=== PATIENT | male | born 1950 | race Caucasian/White ===

== ENCOUNTER 2018-04-21 13:33 | Inpatient (IN) | payer OTHER ==
[~2018-04-21] VITALS: Ht 188 cm; Wt 114.8 kg
[2018-05-23] VITALS (9 sets, daily range): BP systolic 110–143; BP diastolic 55–97; PULSE 66–105; TEMP 97.8–99.4
[2018-05-23] MEDS ORDERED: ZESTRIL40 MG PO (07:52)
[2018-05-23] MEDS ORDERED: HCTZ 25MG TAB25 MG PO (07:52)
[2018-05-23] MEDS ORDERED: NORVASC 5MG5 MG/TAB PO (07:53)
[2018-05-23] MEDS ORDERED: PRAVACHOL 40MG40 MG PO (07:53)
--- NOTE | 2018-05-23 13:35 | NUR ---
PATIENT BACK IN ROOM 329 POST OP. ORIENTED BUT DROWSY. VSS. DENIES PAIN. RTK DRESSING IS CD&I WITH AQUACEL AND TECHNOL BRACE INPLACE. TEDS & SCD'S TO BLE. DEVRIES TO DEPENDENT DRAINAGE WITH SMALL AMOUNTS OF CLEAR YELLOW URINE NOTED. IV FLUIDS INFUSING VIA PUMP. NO C/O N/V. LIQUIDS AT BEDSIDE. HEAD TO TOE ASSESSMENT WNL. NO OTHER NEEDS. CALL LIGHT IN REACH.
--- NOTE | 2018-05-23 14:55 | NUR ---
ELDA and SW student met with patient and his to discuss discharge planning. Patient lives in [place] with his Denise. Patients PCP is the [facility] Kear[facility] in [place] and he obtains his medications form [facility] pharmacy. Patient has his walker and will be doing outpatient PT at [facility]. SW made copies of patients DPOA-HC and Living will and placed them in the chart. There are no anticipated discharge needs at this time.
--- NOTE | 2018-05-23 20:15 | NUR ---
Assessment completed. Patient is A&O x 4. VSS. Pain controlled at this time with scheduled Tylenol and prn Oxycodone. Aquacell dressing to right knee is CDI. Technol brace maintained to RLE. Pedal pulses intact. BLE alexis hose/scds on. Encouraged ankle pumps. Tolerating diet with no c/o nausea. Grove catheter to DD with yellow clear urine draining. IVF infusing with intermittent antibiotic per orders. Will ambulate this evening after pain medication patient has just received takes into effect. Denies any concerns or needs at this time. Bed is in a low position with call light in reach.
--- NOTE | 2018-05-23 22:00 | NUR ---
Patient up with assist x 1 with walker and gait belt. Ambulated approximately 75 feet in the hallway this evening with staff. Assisted with repositioning in bed. Denies any other concerns or needs at this time.
--- NOTE | 2018-05-23 22:40 | NUR ---
Patient called out c/o right knee pain that was throbbing after ambulating in the hallway and had not gotten better with elevation or ice, prn IV Morphine given.
--- NOTE | 2018-05-24 00:30 | NUR ---
Patient has been resting well since receiving a dose of prn IV Morphine. Oxycodone given at this time and assisted with repositioning in bed. Denies any concerns or needs, call light remains within reach.
[2018-05-24 00:57] VITALS: BP 116/71; PULSE 107; TEMP 98.7
[2018-05-24 04:55] VITALS: BP 140/67; PULSE 104; TEMP 99.4
--- NOTE | 2018-05-24 06:10 | NUR ---
Patient has rested intermittently through the night. Pain has been controlled with scheduled Tylenol and prn Oxycodone. Patient did receive 1 dose of prn IV Morphine last night after ambulating. Technol brace removed this morning. Aquacell dressing to right knee has a small amount of drainage noted, an ice pack applied to knee at this time. Grove catheter remains to DD with yellow clear urine draining. IVF infusing with last antibiotic due this morning then will be INT. Denies any concerns or needs at this time, call light is within reach.
[2018-05-24 06:20] LABS: HEMOGLOBIN 12.4 g/dl (13.5-18.0)
[2018-05-24 06:25] LABS: HEMATOCRIT 36.6 % (42.0-52.0)
--- NOTE | 2018-05-24 07:06 | NUR ---
REPORT FROM BRANDON JERRY. BLACK BETANCOURT IN TO SEE PATIENT SEE COMPUTER FOR NEW ORDERS.
[2018-05-24 07:52] VITALS: BP 132/79; PULSE 106; TEMP 98
--- NOTE | 2018-05-24 08:41 | NUR ---
PT UP IN BED FOR BREAKFAST. OUT TO [facility] WITH THERAPY. AMBULATING WELL DRESSING TO RIGHT KNEE CDI WITH AQUACEL OVER INCISION.
[2018-05-24 11:40] VITALS: BP 132/72; PULSE 101; TEMP 99
--- NOTE | 2018-05-24 13:10 | NUR ---
Initial visit; Patient and his thanked Trimmer Operator for looking in on patient and wishing him well and offering God's blessings.
--- NOTE | 2018-05-24 14:47 | NUR ---
SW and Sammy student met with patient and about DME choice for a walker. Patient and chose [facility] and signed choice form. SW will fax order to [facility] once it is signed.
[2018-05-24 15:48] VITALS: BP 135/69; PULSE 99; TEMP 98.4
--- NOTE | 2018-05-24 19:10 | NUR ---
Assessment completed. Patient is A&O x 4. VSS, on room air. Pain controlled with prn Oxycodone, patient wishes to stick to Oxycodone instead of alternating between Oxycodone and [place]. Aquacell dressing to right knee has a moderate amount of drainage noted, ice pack in place at this time. Pedal pulses intact. BLE alexis hose/scds on. Encouraged ankle pumps. Patient states he's been working on RLE exercises while in bed. Tolerating diet with no c/o nausea. Voiding with no difficulities. INT to left hand. Will ambulate later this evening in the hallway. Denies any concerns or needs, call light within reach.
[2018-05-24 20:08] VITALS: BP 105/55; PULSE 105; TEMP 98.6
[2018-05-25 00:15] VITALS: BP 116/58; PULSE 103; TEMP 98.6
[2018-05-25 04:50] VITALS: BP 119/71; PULSE 95; TEMP 98.3
--- NOTE | 2018-05-25 05:46 | NUR ---
Patient has rested intermittently through the night. VSS. Pain remains controlled with prn Oxycodone. Technol brace removed at this time. Aquacell dressing to right knee with a moderate amount of drainage, no increase in drainage since shift assessment. Denies any concerns or needs, call light is within reach.
[2018-05-25 06:24] LABS: HEMOGLOBIN 11.5 g/dl (13.5-18.0)
[2018-05-25 06:27] LABS: HEMATOCRIT 33.5 % (42.0-52.0)
[2018-05-25 08:00] VITALS: BP 116/71; PULSE 113; TEMP 99
--- NOTE | 2018-05-25 08:00 | NUR ---
PATIENT IS A&O. VSS. RATES PAIN AT 5-6 IN RLE. GAVE PRN ROXICODONE. RTK DRESSING NOTED MOD BLOODY DRAINAGE TO AQUACEL. PATIENT PLANNING TO SHOWER WITH OT THIS AM AND DRESSING WILL BE CHANGED. TEDS TO BLE. SCD'S CURRENTLY OFF. PATIENT UP IN BEDSIDE CHAIR. BREAKFAST TRAY AT BEDSIDE. AM MEDS GIVEN. HEAD TO TOE WNL. NO OTHER NEEDS. CALL LIGHT IN REACH.
[2018-05-25 10:25] VITALS: BP 116/71; PULSE 113; TEMP 99
[2018-05-25 12:42] VITALS: BP 101/63; PULSE 106; TEMP 98.8
[2018-05-25] MEDS ORDERED: NORCO 325 MG-7.1 TAB PO (13:41)
[2018-05-25] MEDS ORDERED: ROXICODONE 55 MG/TAB PO (13:41)
[2018-05-25] MEDS ORDERED: ASPI325T6 PO (13:41)
[2018-05-25] MEDS ORDERED: COLACE 100100 MG/CAP PO (13:42)
[2018-05-25] MEDS ORDERED: TYLENOL 500MG500 MG PO (13:42)
--- NOTE | 2018-05-25 13:43 | NUR ---
ELDA sent referral for walker to [facility]. Ingrid called to confirm that they only have [facility] as a payer source and not medicare as well. ELDA met with patient and who provided their medicare card. ELDA faxed to [facility] who will bring the walker prior to dc. ELDA called Mert in Finance to inform them of medicare card. Patient is discharging home today with spouse support.
--- NOTE | 2018-05-25 14:35 | NUR ---
PATIENT DISCHARGING HOME VIA WHEELCHAIR TO PERSONAL VEHICLE WITH . GAVE DISCHARGE INSTRUCTIONS, PRESCRIPTIONS, AIRSTRIPS & FOLLOW UP APTS. ANSWERED ALL QUESTIONS/CONCERNS. SENT HOME PERSONAL BELONGINGS. IV DC'D THIS AM. PATIENT DISCHARGED.
== END 2018-05-25 14:35 | disposition home or self-care (01) | DRG 470 ==
LOC: JCC 05-23 06:47
PROVIDERS: ADMIT Orthopaedic Surgery
PROC: 0SRC0J9 Replacement of Right Knee Joint with Synthetic Substitute, Cemented, Open Approach (ICD-10-PCS; principal; 2018-05-23 11:00)
DX: M17.11 Unilateral primary osteoarthritis, right knee (principal); I10 Essential (primary) hypertension; Z87.891 Personal history of nicotine dependence
CPT/HCPCS: A4314; A9284; C1713; C1776; J0690; J2250; J2270; J2704; J3010; J7030

== ENCOUNTER → 2018-05-10 | Outpatient (CLI) | payer OTHER | LOC: COL.LAB 15:21 | DX: Z01.812 Encounter for preprocedural laboratory examination (principal) ==

== ENCOUNTER 2019-01-19 11:34 | Inpatient (IN) | payer OTHER ==
[~2019-01-19] VITALS: Ht 188 cm; Wt 125.3 kg
[~2019-01-19 11:34] MED LIST: ASPI325T6 PO; COLACE 100100 MG/CAP PO; HCTZ 25MG TAB25 MG PO; NORCO 325 MG-7.1 TAB PO; NORVASC 5MG5 MG/TAB PO; PRAVACHOL 40MG40 MG PO; ROXICODONE 55 MG/TAB PO; TYLENOL 500MG500 MG PO; ZESTRIL40 MG PO
[2019-03-21] VITALS (12 sets, daily range): BP systolic 110–124; BP diastolic 51–80; PULSE 59–115; TEMP 97.5–985
[2019-03-21] MEDS ORDERED: ASPIRIN 81M81 MG/TA2 PO (03:30)
[2019-03-21] MEDS ORDERED: ALEVE LIQCAPS (03:32)
[2019-03-21] MEDS ORDERED: GLUCOSAMINE 1000 PO (05:31)
--- NOTE | 2019-03-21 10:40 | NUR ---
PT TO ROOM 329 PER BED WITH REPORT FROM TERRIE JERRY PACU @1030. PT IS A/O X3, LUNGS CLEAR, BOWEL SOUNDS PRESENT. DRESSING TO RIGHT KNEE CDI WITH OCCLUSIVE OFELIA OVER SITE. SCDS BILATERALLY AND DAVID ON NON OPERATIVE LOWER EXT. IV TO PUNP, DEVRIES TO DD WITH CLEAR YELLOW URINE IN BAG. PT'S AT BEDSIDE. ICE CHIPS PROVIDED PER REQUEST. ICE BAG TO RIGHT KNEE.
--- NOTE | 2019-03-21 17:06 | NUR ---
Belt Back Operator met with patient and patient's Denise (ph#[phone]) to discuss discharge planning. Patient lives in [place] and sees Dr. Kearney at the [facility] for primary care. [facility] Patient has a cpap and walker. Patient states he has Advance Directives completed. Patient plans to return home upon discharge.
--- NOTE | 2019-03-21 20:00 | NUR ---
Report received. 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 C/O pain to left Knee rating 7/10 described as throbbing. Roxicodone given per dr romero. States he cant get up to ambulate at this time due to pain level. Will reattempt later this shift.
--- NOTE | 2019-03-21 23:30 | NUR ---
Assessment complete. Denies N/pain/shortness of breath. Tolerating PO. Dressing to left knee-bulky white with cali bandage C/D/I. Fresh ice packs applied. SCDs/TEDs bilat. Discussed ambulation again but refusing due to the time. Discussed getting up before end of shift. Verbalizes understanding. Denies needs. Call light in reach/bed in low/wheels locked. Will monitor.
[2019-03-22 00:19] VITALS: BP 119/71; PULSE 104; TEMP 98.3
[2019-03-22 04:15] VITALS: BP 122/85; PULSE 101; TEMP 98.1
[2019-03-22 06:44] LABS: HEMATOCRIT 38.1 % (42.0-52.0); HEMOGLOBIN 12.7 g/dl (13.5-18.0)
--- NOTE | 2019-03-22 06:54 | NUR ---
awake resting in bed, bedside shift report received from ROSALINO Fuentes
[2019-03-22 07:20] VITALS: BP 130/84; PULSE 103; TEMP 98.3
--- NOTE | 2019-03-22 08:09 | NUR ---
Pt resting in bed. No sign of distress. VSS stable. Call light within reach .
--- NOTE | 2019-03-22 08:20 | NUR ---
full assessment completed, have reviewed assessment completed by student and in agreement with that assessment
--- NOTE | 2019-03-22 09:22 | NUR ---
physical therapy in to work with patient
--- NOTE | 2019-03-22 10:26 | NUR ---
Initial visit; Patient and his thanked Field Crop Harvest Worker for looking in on Piotr and offering spiritual care.
--- NOTE | 2019-03-22 10:56 | NUR ---
oden catheter removed by student nurse, occupational therapy in and assisting him with taking a shower
--- NOTE | 2019-03-22 11:05 | NUR ---
medicated with hydrocodone 7.5mg 2 tabs for c/os pain
--- NOTE | 2019-03-22 11:37 | NUR ---
had shower and tolerated well, in chair and waiting for lunch, denies needs
[2019-03-22 12:02] VITALS: BP 125/75; PULSE 94; TEMP 97.6
--- NOTE | 2019-03-22 13:26 | NUR ---
ambulated out to alvarez with physical therapy for group exercises
--- NOTE | 2019-03-22 14:16 | NUR ---
back to room after therapy and resting in bed
--- NOTE | 2019-03-22 14:40 | NUR ---
appears to be sleeping, in bed with lights off, eyes closed, resp quiet and easy
[2019-03-22 15:52] VITALS: BP 112/68; PULSE 94; TEMP 98.6
--- NOTE | 2019-03-22 16:28 | NUR ---
awake resting in bed visiting with , denies needs
--- NOTE | 2019-03-22 18:17 | NUR ---
had supper and tolerated well, denies needs
--- NOTE | 2019-03-22 18:51 | NUR ---
bedside shift report given to ROSALINO Gonzales, medcicated with hydrocodone 7.5mg 2 tabs
[2019-03-22 20:53] VITALS: BP 113/75; PULSE 95; TEMP 98.5
[2019-03-23 00:08] VITALS: BP 113/75; PULSE 91; TEMP 98.5
[2019-03-23 04:58] VITALS: BP 115/77; PULSE 93; TEMP 97.9
--- NOTE | 2019-03-23 05:54 | NUR ---
Patient has rested well throughout the night. Pain well controlled on current regemin. Patient states he wants more pain medication before therapy, but does not want any at this time. Dressing to left knee clean, dry, and intact. TEDs on. Requests something for constipation this morning. Educated that he has stool softners he has been taking at HS, but will have day shift talk with physician about additional medication. Denies any other needs. Will report off to day shift nurse.
[2019-03-23 06:09] LABS: HEMATOCRIT 38.6 % (42.0-52.0); HEMOGLOBIN 12.7 g/dl (13.5-18.0)
[2019-03-23] MEDS ORDERED: ASPI325T6 PO (06:20)
[2019-03-23] MEDS ORDERED: NORCO 325 MG-7.1 TAB PO (06:21)
[2019-03-23] MEDS ORDERED: ROXICODONE 55 MG/TAB PO (06:22)
[2019-03-23] MEDS ORDERED: COLACE 100100 MG/CAP PO (06:22)
[2019-03-23] MEDS ORDERED: TYLENOL 500MG500 MG PO (06:22)
[2019-03-23 07:08] VITALS: BP 119/84; PULSE 93; TEMP 98.1
--- NOTE | 2019-03-23 07:17 | NUR ---
Pt resting in bed. No sign of distress. Dressing on left knee has scant amount of bleed on dressing less than a centimeter. Pt stated doctor aware and it is okay. Call light within reach.
--- NOTE | 2019-03-23 07:39 | NUR ---
REPORT FROM TEGAN JERRY.
--- NOTE | 2019-03-23 10:39 | NUR ---
DISCHARGE INSTRUCTIONS PROVIDED TO PT AND . QUESTIONS SOLICITED AND ANSWERED. PT TAKEN OUT BY WHEEL CHAIR BY ADN STUDENT.
== END 2019-03-23 10:40 | disposition home or self-care (01) | DRG 470 ==
LOC: JCC 03-21 05:09
PROVIDERS: ADMIT Orthopaedic Surgery
PROC: 0SRD0J9 Replacement of Left Knee Joint with Synthetic Substitute, Cemented, Open Approach (ICD-10-PCS; principal; 2019-03-21 08:20)
DX: M17.0 Bilateral primary osteoarthritis of knee (principal)
CPT/HCPCS: A4314; A9284; C1776; J0690; J1100; J2250; J2270; J2405; J2704; J3010; J7030; J7120